=== PATIENT | female | born 1975 | race Caucasian/White ===

== ENCOUNTER 2016-11-03 09:56 | Observation (INO) | payer SELFPAY ==
[~2016-11-03] VITALS: Ht 162.6 cm; Wt 99.0 kg
[2016-11-03 10:09] VITALS: BP 132/82; PULSE 97; RESP 16; TEMP 98.2; O2SAT 100
[2016-11-03 10:54] LABS: MEAN CORPUSCULAR HGB CONC 29.9 % (32.0-36.0)
[2016-11-03 11:21] LABS: AUTOMATED NEUTROPHIL # 5.9 TH/MM3 (1.8-7.7); BASOPHIL % 0.6 % (0.0-2.0); EOSINOPHIL # 0.1 TH/MM3 (0-0.4); EOSINOPHIL % 0.9 % (0.0-4.0); HEMATOCRIT 25.7 % (35.0-46.0); LYMPH % 17.2 % (9.0-44.0); LYMPHOCYTE # 1.4 TH/MM3 (1.0-4.8); MEAN CELL VOLUME 64.7 FL (80.0-100.0); MEAN CORPUSCULAR HEMOGLOBIN 19.4 PG (27.0-34.0); MONO % 6.2 % (0.0-8.0); NEUT % 75.1 % (16.0-70.0); PLATELET COUNT 359 TH/MM3 (150-450); RED BLOOD COUNT 3.97 MIL/MM3 (4.00-5.30); WHITE BLOOD COUNT 7.9 TH/MM3 (4.0-11.0)
[2016-11-03 11:23] LABS: HEMO FLAGS AUTO DIFF
--- NOTE | 2016-11-03 11:29 | PD ---
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 She states she is concerned because she's been having a heavy amount over the past couple of days worse sometimes and an hour she'll passed multiple clots. Quality is bright red. Severity is progressive. She states she has long-standing history of irregular periods and her last bleeding was a week before this. She states no other specific complaints. PFSH Past Medical History Medical History: Denies Significant Hx Hx Anticoagulant Therapy: No Diabetes: No ?: Not LMP: NOW Past Surgical History Surgical History: No Previous Surgery Social History Alcohol Use: No Tobacco Use: Yes Substance Use: No Allergies-Medications (Allergen,Severity, Reaction): Coded Allergies: No Known Allergies (Unverified , 11/03/16) Reported Meds & Prescriptions Reported Meds & Active Scripts Active No Active Prescriptions or Reported Medications Review of Systems Except as stated in HPI: all other systems reviewed are Neg Physical Exam Narrative GENERAL: Well-nourished, well-developed patient. SKIN: Warm and dry. HEAD: Normocephalic and atraumatic. EYES: No injection or drainage. ENT: No nasal drainage noted. NECK: Supple, trachea midline. CARDIOVASCULAR: Regular rate and rhythm RESPIRATORY: No increased effort. No accessory muscle use. GASTROINTESTINAL: Abdomen soft, mild suprapubic tenderness, nondistended. No rebound or guarding EXTREMITIES: No edema. GENITOURINARY: Normal external genitalia without lesions or erythema. Vaginal vault moderate amount of blood. Cervical os is obscured by blood. When this is cleared os is not dilated and blood is coming from this area NEUROLOGICAL: Awake and alert. Motor and sensory grossly within normal limits. Normal speech. Data Data Last Documented VS Vital Signs Date Time Temp Pulse Resp B/P Pulse Ox O2 Delivery O2 Flow Rate FiO2 11/03/16 13:55 89 18 130/84 98 Room Air 11/03/16 10:09 98.2 Orders Complete Blood Count With Diff (11/03/16 10:53) Type And Screen (11/03/16 10:53) Iv Access Insert/Monitor (11/03/16 10:53) Ecg Monitoring (11/03/16 10:53) Ed Urine Pregnancytest Poc (11/03/16 10:53) Basic Metabolic Panel (Bmp) (11/03/16 11:59) Us Pelvis Comp Data Integrity Analyst/Non-Preg (11/03/16 12:00) Hemoglobin (Hgb) (11/03/16 14:00) Red Blood Cells (Rbc) (11/03/16 14:42) Admit Order (Ed Use Only) (11/03/16 15:01) Labs Laboratory Tests Test 11/03/16 11/03/16 11:09 13:52 White Blood Count 7.9 TH/MM3 Red Blood Count 3.97 MIL/MM3 Hemoglobin 7.7 GM/DL 7.1 GM/DL Hematocrit 25.7 % Mean Corpuscular Volume 64.7 FL Mean Corpuscular Hemoglobin 19.4 PG Mean Corpuscular Hemoglobin 29.9 % Concent Red Cell Distribution Width 18.0 % Platelet Count 359 TH/MM3 Mean Platelet Volume 8.0 FL Neutrophils (%) (Auto) 75.1 % Lymphocytes (%) (Auto) 17.2 % Monocytes (%) (Auto) 6.2 % Eosinophils (%) (Auto) 0.9 % Basophils (%) (Auto) 0.6 % Neutrophils # (Auto) 5.9 TH/MM3 Lymphocytes # (Auto) 1.4 TH/MM3 Monocytes # (Auto) 0.5 TH/MM3 Eosinophils # (Auto) 0.1 TH/MM3 Basophils # (Auto) 0.0 TH/MM3 CBC Comment AUTO DIFF Differential Comment AUTO DIFF CONFIRMED Sodium Level 140 MEQ/L Potassium Level 3.9 MEQ/L Chloride Level 105 MEQ/L Carbon Dioxide Level 25.0 MEQ/L Anion Gap 10 MEQ/L Blood Urea Nitrogen 14 MG/DL Creatinine 1.00 MG/DL Estimat Glomerular Filtration 62 ML/MIN Rate Random Glucose 128 MG/DL Calcium Level 8.6 MG/DL Blood Type A POSITIVE Antibody Screen NEGATIVE Blood Bank Comment [facility] Medical Decision Making Medical Screen Exam Complete: Yes Emergency Medical Condition: Yes Medical Record Reviewed: Yes (past history confirmed) Interpretation(s) CBC & BMP Diagram 11/03/16 11:09 Beta is negative Differential Diagnosis Menses, miscarriage, ectopic, anemia Narrative Course Will check blood work, test and reevaluate Hemoglobin is 7.7. Patient denies history of anemia. We'll discuss with gynecology given active bleeding hgb 7.1, has gone thru 3 pads in 4 hours, will place 2 units on hold, patient agrees to observation and if drops further or vitals change to transfuse Physician Communication Physician Communication dr barrett covering for corky states to check ultrasound and repeat hgb and if stays stable can go home on progesterone dr barrett states to admit to [facility] under her name Diagnosis Primary Impression: Anemia Qualified Code: D64.9 - Anemia, unspecified type Additional Impression: Vagina bleeding Scripts No Active Prescriptions or Reported Meds Shannon Fernandez MD Nov 03, 2016 11:29
[2016-11-03 12:14] LABS: SCAN/DIFF AUTO DIFF CONFIRMED
[2016-11-03 12:17] LABS: POTASSIUM 3.9 MEQ/L (3.5-5.1)
[2016-11-03 13:55] VITALS: BP 130/84; PULSE 89; RESP 18; O2SAT 98
--- NOTE | 2016-11-03 14:54 | RADHPO ---
EXAM DATE/TIME: 11/03/2016 12:42 [place] COMPARISON: No previous studies available for comparison. INDICATIONS : Vagina bleeding. MEDICAL HISTORY : Abnormal vaginal bleeding. Lower abdominal and pelvic pain. SURGICAL HISTORY : None. ENCOUNTER: Initial ACUITY: 3 days PAIN SCORE: 8/10 LOCATION: Bilateral pelvis MEASUREMENTS: UTERUS: 9.5 x 4.5 x 5.5 cm ENDOMETRIAL STRIPE: 17 mm RIGHT OVARY: 5.3 x 5.0 x 4.0 cm LEFT OVARY: 3.4 x 4.0 x 2.2 cm FINDINGS: UTERUS: The myometrium has homogeneous echotexture without mass. RIGHT OVARY: Ovary contains no mass or significant cystic lesion. LEFT OVARY: Ovary contains no mass or significant cystic lesion. 14 mm simple cyst is seen off the lower pole of the ovary. MISCELLANEOUS: No free fluid. CONCLUSION: 14 mm left ovarian cyst. Thickened endometrial stripe No evidence of suspicious central pelvic or adnexal masses. Santos Conde MD on November 03, 2016 at 14:49 Board Certified Radiologist. This report was verified electronically.
[2016-11-03 16:11] VITALS: BP 131/78; PULSE 92; RESP 18; O2SAT 97
[2016-11-03 18:25] VITALS: BP 128/72; PULSE 83; RESP 20; TEMP 98.7; O2SAT 98
--- NOTE | 2016-11-03 20:04 | HHI.HP ---
HPI Chief Complaint Irregular vaginal bleeding Date Seen: Nov 03, 2016 Travel History International Travel<30 Days: No Contact w/Intl Traveler<30Days: No Known Affected Area: No History of Present Illness HPI 40 yo G0 transferred from an outside facility where she presented with irregular vaginal bleeding. Hemoglobin there 7.1. Patient denies dizziness or lightheadedness. Patient reports irregular menses for years. US obtained at the previous facility, showing EMS 17mm and LARS simple cyst-14mm. Denies clots. Denies abdominal or pelvic pain. Last motor builder winder visit 5 years ago. Denies any treatment or recent evaluation for her irregular menses before today. History Past Medical History Medical History: Denies Significant Hx Past Surgical History Surgical History: No Previous Surgery Family History Family History: Negative Social History Alcohol Use: No Tobacco Use: Yes (Reports 5 or less cigarettes per day) Substance Abuse: No Allergies-Medications (Allergen,Severity, Reaction): Coded Allergies: No Known Allergies (Unverified , 11/03/16) Home Meds No Active Prescriptions or Reported Meds Review of Systems Except as stated in HPI: all other systems reviewed are Neg Physical Exam Vital Signs Date Time Temp Pulse Resp B/P Pulse Ox O2 Delivery O2 Flow Rate FiO2 11/03/16 18:25 98.7 83 20 128/72 98 11/03/16 16:11 92 18 131/78 97 Room Air 11/03/16 13:55 89 18 130/84 98 Room Air 11/03/16 10:09 98.2 97 16 132/82 100 Narrative GENERAL: Well-nourished, well-developed patient. SKIN: Warm and dry. HEAD: Normocephalic and atraumatic. EYES: No scleral icterus. No injection or drainage. ENT: No nasal drainage noted. Mucous membranes pink. Airway patent. NECK: Supple, trachea midline. No JVD. CARDIOVASCULAR: Regular rate and rhythm without murmurs, gallops, or rubs. RESPIRATORY: Breath sounds equal bilaterally. No accessory muscle use. BREASTS: Bilateral exam showed no masses , no retractions, no nipple discharge. ABDOMEN/GI: Abdomen soft, non-tender, bowel sounds present, no rebound, no guarding Gravid to [-] weeks size Fundal Height: [-] GENITOURINARY: SSE- scant blood in vault, no clots, cervix with CMT, uterus- small and mobile, adnexa- NT External Genitalia: intact and normal in appearance BUS glands: [-] Cervix: [-] Dilatation: [-] Effacement: [-] Station: [-] Presentation: [-] Membranes: [intact or ruptured] Uterine Contractions: [-] FHT's: Category: [-] Baseline: [-] Reactive: [-] Variability: [-] Decels: [-] EXTREMITIES: No cyanosis or edema. BACK: Nontender without obvious deformity. No CVA tenderness. NEUROLOGICAL: Awake and alert. Motor and sensory grossly within normal limits. Five out of 5 muscle strength in all muscle groups. Normal speech. Data Data Orders Complete Blood Count With Diff (11/03/16 10:53) Type And Screen (11/03/16 10:53) Iv Access Insert/Monitor (11/03/16 10:53) Ecg Monitoring (11/03/16 10:53) Ed Urine Pregnancytest Poc (11/03/16 10:53) Basic Metabolic Panel (Bmp) (11/03/16 11:59) Us Pelvis Comp Director Digital Catalogue/Non-Preg (11/03/16 12:00) Hemoglobin (Hgb) (11/03/16 14:00) Red Blood Cells (Rbc) (11/03/16 14:42) Admit Order (Ed Use Only) (11/03/16 15:01) ^ Call Physician (11/03/16 16:58) Labs Laboratory Tests Test 11/03/16 11/03/16 11/03/16 11/03/16 11:09 13:52 14:42 15:01 White Blood Count 7.9 Red Blood Count 3.97 Hemoglobin 7.7 7.1 Hematocrit 25.7 Mean Corpuscular Volume 64.7 Mean Corpuscular Hemoglobin 19.4 Mean Corpuscular Hemoglobin 29.9 Concent Red Cell Distribution Width 18.0 Platelet Count 359 Mean Platelet Volume 8.0 Neutrophils (%) (Auto) 75.1 Lymphocytes (%) (Auto) 17.2 Monocytes (%) (Auto) 6.2 Eosinophils (%) (Auto) 0.9 Basophils (%) (Auto) 0.6 Neutrophils # (Auto) 5.9 Lymphocytes # (Auto) 1.4 Monocytes # (Auto) 0.5 Eosinophils # (Auto) 0.1 Basophils # (Auto) 0.0 CBC Comment AUTO DIFF Differential Comment AUTO DIFF CONFIRMED Sodium Level 140 Potassium Level 3.9 Chloride Level 105 Carbon Dioxide Level 25.0 Anion Gap 10 Blood Urea Nitrogen 14 Creatinine 1.00 Estimat Glomerular Filtration 62 Rate Random Glucose 128 Calcium Level 8.6 Blood Type A POSITIVE A POSITIVE A POSITIVE Antibody Screen NEGATIVE Blood Bank Comment Crossmatch Leukocyte-Reduced Red Blood Cells Assessment/Plan Assessment and Plan 40 yo G0 with irregular menses and anemia. Plan: D/w patient US and current status. D/w patient a trial of Premarin IV. R /B/A reviewed, all questions answered. D/w patient possibility of transfusion. R/B/A reviewed with all questions answered. CBC in am. Continue pad counts. Close motor builder winder f/u upon discharge. Lindsey Perez MD Nov 03, 2016 20:04
[2016-11-03] MEDS ORDERED: ONDANSETRON HCL 4 MG/2 ML VIAL IV PUSH PRN (20:15)
[2016-11-03] MEDS ORDERED: ESTROGENS CONJUGATED 25 MG/5 ML VIAL IV PUSH ONE (20:30)
[2016-11-03 20:55] VITALS: BP 129/70; PULSE 62; RESP 18; TEMP 97.3; O2SAT 95
[2016-11-04] VITALS (10 sets, daily range): BP systolic 103–133; BP diastolic 55–79; PULSE 74–87; RESP 16–18; TEMP 96.4–98.8; O2SAT 97–99
[2016-11-04 08:05] LABS: BASOPHIL % 0.3 % (0.0-2.0); EOSINOPHIL % 0.2 % (0.0-4.0); LYMPH % 13.7 % (9.0-44.0); LYMPHOCYTE # 2.2 TH/MM3 (1.0-4.8); MEAN CELL VOLUME 63.6 FL (80.0-100.0); MEAN CORPUSCULAR HEMOGLOBIN 19.3 PG (27.0-34.0); MEAN CORPUSCULAR HGB CONC 30.3 % (32.0-36.0); MONO % 4.8 % (0.0-8.0); PLATELET COUNT 326 TH/MM3 (150-450); RED BLOOD COUNT 3.29 MIL/MM3 (4.00-5.30); RED CELL DISTRIBUTION WIDTH 18.5 % (11.6-17.2); WHITE BLOOD COUNT 16.1 TH/MM3 (4.0-11.0)
[2016-11-04 08:19] LABS: HEMO FLAGS DIFF FINAL
[2016-11-04 08:31] LABS: HEMATOCRIT 20.9 % (35.0-46.0)
[2016-11-04] MEDS ORDERED: ACETAMINOPHEN 325 MG TAB PO PRN (10:45)
[2016-11-04] MEDS ORDERED: SODIUM CHLOR 0.9% 250 ML INJ 250 ML IV ONE (10:45)
[2016-11-04] MEDS ORDERED: diphenhydrAMINE HCL 25 MG CAP PO PRN (10:45)
--- NOTE | 2016-11-04 11:27 | HHI.PR ---
Subjective Remarks Patient was seen and examined this morning. She has be ambulating without dizziness, shortness of breath, or balance issues. Her menstrual bleeding is "minimal" since she received the IV estrogen. She denies nausea, vomiting, headache, shortness of breath, chest pain. She was updated on her hemoglobin drop and is agreeable to receiving blood products today. Objective Vital Signs Date Time Temp Pulse Resp B/P Pulse Ox O2 Delivery O2 Flow Rate FiO2 11/04/16 08:16 96.4 79 18 103/68 98 11/04/16 04:00 96.8 84 16 110/55 98 11/04/16 00:31 96.4 78 18 112/59 97 11/03/16 20:55 97.3 62 18 129/70 95 11/03/16 18:25 98.7 83 20 128/72 98 11/03/16 16:11 92 18 131/78 97 Room Air 11/03/16 13:55 89 18 130/84 98 Room Air I/O 11/03/16 11/03/16 11/03/16 11/04/16 11/04/16 11/04/16 07:00 15:00 23:00 07:00 15:00 23:00 Intake Total 600 ml 550 ml Output Total 900 ml Balance 600 ml -350 ml Intake Oral 600 ml 550 ml Output Urine Total 900 ml # Voids 3 # Bowel Movements 0 0 # Sanitary Pads 5 Pads 1 Pads 1 Pads Result Diagram: 11/04/16 0734 11/03/16 1109 Imaging Last 72 hours Impressions Pelvis Ultrasound 11/03/16 1200 Signed Impressions: Service Date/Time: Thursday, November 03, 2016 12:42 - CONCLUSION: 14 mm left ovarian cyst. Thickened endometrial stripe No evidence of suspicious central pelvic or adnexal masses. Santos Conde MD Objective Remarks GENERAL: Well-nourished, well-developed female. She appears comfortable and is in no apparent distress CARDIOVASCULAR: Regular rate and rhythm without murmurs, gallops, or rubs. RESPIRATORY: Breath sounds equal bilaterally. No accessory muscle use. ABDOMEN/GI: Abdomen soft, non-tender. GENITOURINARY: deferred EXTREMITIES: No cyanosis or edema, non-tender, without signs of DVT. Medications and IVs Inpatient Medications Acetaminophen (Tylenol) 650 mg Q4H PRN PO SEE LABEL COMMENTS; Start 11/04/16 at 10:45; Stop 11/04/16 at 14:46 Diphenhydramine HCl (Benadryl) 25 mg Q4H PRN PO SEE LABEL COMMENTS; Start 11/04 at 10:45; Stop 11/04/16 at 14:46 Estrogens Conjugated (Premarin Inj) 25 mg ONCE ONCE IV PUSH Last administered on 11/03/16t 22:55; Start 11/03/16 at 20:30; Stop 11/03/16 at 20:31; Status DC Famotidine (Pepcid) 20 mg Q12HR PO ; Start 11/04/16 at 10:45 Ondansetron HCl 4 mg 4 mg Q6H PRN IV PUSH NAUSEA OR VOMITING; Start 11/03/16 at 20:15 Sodium Chloride (NS 250 ml Inj) 250 ml @ 15 mls/hr ONCE ONCE IV ; Start at 10:45; Stop 11/05/16 at 03:24 Assessment and Plan Problem List: (1) Vagina bleeding Status: Acute Plan: 40 yo G0 with irregular menses and anemia. She is currently asymptomatic with minimal vaginal bleeding after IV Premarin 1. However, her hemoglobin is noted to have dropped from 7.7 to 6.3 this hospital stay. Most likely etiology is chronic vaginal bleeding. She is a light smoker and is over age 35 so OCPs are contraindicated. US obtained 11/03/16. It showed an initial stripe of thickness 17mm and left ovarian simple cyst-14mm. Plan: D/w patient risks, benefits, and alternatives to transfusion. She uses transfusion this morning of 2 units PRBCs. This was discussed with her nurse as well. Follow-up H&H posttransfusion. Continue pad counts. She may be stable for discharge this evening after PRBC administration. Close ob/gyn doctor f/u upon discharge (i.e., within 1 week). Patient will likely require medication for long-term control of irregular menstrual bleeding. One option is tranexamic acid, and risks and benefits of this should be discussed with patient as there risks of adverse events with this medication. Patient was discussed with Dr. Licona (2) Anemia Status: Acute Plan: Plan as above Problem Qualifiers (1) Anemia: Qualified Code: D50.0 - Iron deficiency anemia due to chronic blood loss Gena Willson MD R1 Nov 04, 2016 11:27
[2016-11-04] MEDS: FAMOTIDINE 20 MG TAB PO SCH ×2 (21:00→22:02)
[2016-11-04 23:29] LABS: AUTOMATED NEUTROPHIL # 18.9 TH/MM3 (1.8-7.7); BASOPHIL # 0.1 TH/MM3 (0-0.2); BASOPHIL % 0.4 % (0.0-2.0); EOSINOPHIL # 0.1 TH/MM3 (0-0.4); EOSINOPHIL % 0.4 % (0.0-4.0); HEMATOCRIT 26.4 % (35.0-46.0); HEMO FLAGS DIFF FINAL; MEAN CELL VOLUME 68.6 FL (80.0-100.0); MEAN CORPUSCULAR HEMOGLOBIN 20.9 PG (27.0-34.0); MEAN CORPUSCULAR HGB CONC 30.5 % (32.0-36.0); MONO % 3.3 % (0.0-8.0); NEUT % 82.9 % (16.0-70.0); PLATELET COUNT 319 TH/MM3 (150-450); RED BLOOD COUNT 3.85 MIL/MM3 (4.00-5.30); RED CELL DISTRIBUTION WIDTH 22.4 % (11.6-17.2)
[2016-11-04 23:37] LABS: WHITE BLOOD COUNT 22.8 TH/MM3 (4.0-11.0)
[2016-11-05] VITALS: BP 116/70; PULSE 66; RESP 18; TEMP 96.9; O2SAT 98
[2016-11-05] MEDS ORDERED: ACETAMINOPHEN 500 MG CPLT PO ONE (01:00)
[2016-11-05 04:00] VITALS: BP 98/65; PULSE 72; RESP 18; TEMP 96.4; O2SAT 100
[2016-11-05 08:00] VITALS: BP 136/79; PULSE 68; RESP 16; TEMP 97.4; O2SAT 97
--- NOTE | 2016-11-05 08:17 | HHI.DCPOC ---
Discharge Care Plan Diagnosis: (1) Vagina bleeding (2) Anemia Report Symptoms to Your Doctor -Temperature above 100.5 degrees -Redness, of incision or excessive or foul smelling drainage -Unusual pain or calf pain -Increased vaginal bleeding -Painful or difficulty urinating -Feelings of extreme sadness or anxiety after 2 weeks Goals to Promote Your Health * To prevent worsening of your condition and complications * To maintain your health at the optimal level Directions to Meet Your Goals Take your medications as prescribed Follow your dietary instruction Follow activity as directed Ensure plenty of rest for recovery Drink fluids for hydration Keep your appointments as scheduled Take your immunizations and boosters as scheduled If your symptoms worsen call your PCP, if no PCP go to Urgent Care Center or Emergency Room Smoking is Dangerous to Your Health. Avoid second hand smoke Call the 24-hour crisis hotline for domestic abuse at Gena Willson MD R1 Nov 05, 2016 08:17
[2016-11-05] MEDS ORDERED: ZOFR4TAB3 SL (08:20)
[2016-11-05] MEDS ORDERED: FAMO20TA2 PO (08:20)
[2016-11-05] MEDS: FAMOTIDINE 20 MG TAB PO SCH (09:11)
--- NOTE | 2016-11-05 10:27 | HHI.PR ---
Subjective Remarks Patient was seen and examined at bedside. She has be ambulating without dizziness, shortness of breath, or balance issues. She is status post 2 units PRBCs on 11/05 with posttransfusion H&H 8.1/26.4. She continues to be asymptomatic due to the anemia and has had her menstrual bleeding is like a light period. She denies nausea, vomiting, headache, shortness of breath, chest pain. Objective Vital Signs Date Time Temp Pulse Resp B/P Pulse Ox O2 Delivery O2 Flow Rate FiO2 11/05/16 08:00 97.4 68 16 136/79 97 11/05/16 04:00 96.4 72 18 98/65 100 11/05/16 00:00 96.9 66 18 116/70 98 11/04/16 20:00 98.8 74 18 121/79 98 11/04/16 19:37 80 11/04/16 15:35 87 11/04/16 15:32 98.0 87 16 127/67 99 11/04/16 13:42 97.1 76 16 117/73 11/04/16 13:30 76 11/04/16 13:29 97.1 76 16 133/73 I/O 11/04/16 11/04/16 11/04/16 11/05/16 11/05/16 11/05/16 07:00 15:00 23:00 07:00 15:00 23:00 Intake Total 550 ml 1000 ml Output Total 900 ml Balance -350 ml 1000 ml Intake Oral 550 ml Packed Cells 1000 ml Output Urine Total 900 ml # Bowel Movements 0 # Sanitary Pads 1 Pads Result Diagram: 11/04/16 2226 11/03/16 1109 Imaging Last Impressions Pelvis Ultrasound 11/03/16 1200 Signed Impressions: Service Date/Time: Thursday, November 03, 2016 12:42 - CONCLUSION: 14 mm left ovarian cyst. Thickened endometrial stripe No evidence of suspicious central pelvic or adnexal masses. Santos Conde MD Objective Remarks GENERAL: Well-nourished, well-developed female in no apparent distress. CARDIOVASCULAR: Regular rate and rhythm without murmurs, gallops, or rubs. RESPIRATORY: Breath sounds equal bilaterally. No accessory muscle use. ABDOMEN/GI: Abdomen soft, non-tender. GENITOURINARY: deferred EXTREMITIES: No cyanosis or edema, non-tender, without signs of DVT. Medications and IVs Inpatient Medications Acetaminophen (Tylenol) 1,000 mg ONCE ONCE PO Last administered on 11/05/16 00:56; Start 11/05/16 at 01:00; Stop 11/05/16 at 01:01; Status DC Diphenhydramine HCl (Benadryl) 25 mg Q4H PRN PO SEE LABEL COMMENTS Last administered on 11/04/16 11:39; Start 11/04/16 at 10:45; Stop 11/04/16 at 14:46 ; Status DC Estrogens Conjugated (Premarin Inj) 25 mg ONCE ONCE IV PUSH Last administered on 11/03/16 22:55; Start 11/03/16 at 20:30; Stop 11/03/16 at 20:31; Status DC Famotidine (Pepcid) 20 mg Q12HR PO Last administered on 11/05/16 09:11; Start 11/04/16 at 10:45 Ondansetron HCl 4 mg 4 mg Q6H PRN IV PUSH NAUSEA OR VOMITING; Start 11/03/16 at 20:15 Sodium Chloride (NS 250 ml Inj) 250 ml @ 15 mls/hr ONCE ONCE IV ; Start at 10:45; Stop 11/05/16 at 03:24; Status DC Assessment and Plan Problem List: (1) Vagina bleeding Status: Acute Plan: 40 yo G0 with irregular menses and anemia. She is currently asymptomatic with minimal vaginal bleeding after IV Premarin 1 on 11/03. Hemoglobin/ hematocrit post transfusion is 8.1/26.3. She is a light smoker and is over age 35 so OCPs are contraindicated. US obtained 11/03/16. It showed an endometrial stripe of thickness 17mm and left ovarian simple cyst-14mm. Plan: Status post transfusion of 2 units PRBCs with appropriately responsive H/H. 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 Marin within 1 week. It was discussed in detail the patient will likely require endometrial biopsy for further workup of her irregular and prolonged vaginal bleeding Continue pad counts. She will be discharged today to home. OCPs and tranexamic acid options were discussed She was counseled of the health benefits of smoking cessation and contraindication to OCPs due to her smoking use. Patient states she will try to quit Patient may require medication for long-term control of irregular menstrual bleeding. Patient was discussed with Dr. Licona (2) Anemia Status: Acute Plan: Plan as above Problem Qualifiers (1) Anemia: Qualified Code: D50.0 - Iron deficiency anemia due to chronic blood loss Gena Willson MD R1 Nov 05, 2016 10:27 Sandra Licona MD Nov 10, 2016 08:28
[2016-11-05 11:37] LABS: AUTOMATED NEUTROPHIL # 17.7 TH/MM3 (1.8-7.7); BASOPHIL # 0.2 TH/MM3 (0-0.2); BASOPHIL % 0.7 % (0.0-2.0); EOSINOPHIL # 0.1 TH/MM3 (0-0.4); EOSINOPHIL % 0.6 % (0.0-4.0); HEMATOCRIT 27.2 % (35.0-46.0); HEMO FLAGS DIFF FINAL; LYMPH % 13.4 % (9.0-44.0); LYMPHOCYTE # 2.9 TH/MM3 (1.0-4.8); MEAN CELL VOLUME 67.4 FL (80.0-100.0); MEAN CORPUSCULAR HGB CONC 31.1 % (32.0-36.0); MONO % 2.6 % (0.0-8.0); NEUT % 82.7 % (16.0-70.0); PLATELET COUNT 303 TH/MM3 (150-450); RED BLOOD COUNT 4.04 MIL/MM3 (4.00-5.30); RED CELL DISTRIBUTION WIDTH 22.1 % (11.6-17.2); WHITE BLOOD COUNT 21.4 TH/MM3 (4.0-11.0)
== END 2016-11-05 12:20 | disposition home or self-care (01) ==
LOC: PHED 09:56 → PHEDA 15:04 → HOCB 18:02
PROVIDERS: ADMIT Obstetrics & Gynecology; ATTEND Obstetrics & Gynecology
DX: N93.9 Abnormal uterine and vaginal bleeding, unspecified (principal); D64.9 Anemia, unspecified; N92.6 Irregular menstruation, unspecified; F17.200 Nicotine dependence, unspecified, uncomplicated
CPT/HCPCS: 36430; 76856; 80048; 84703; 85018; 85025; 86850; 86900; 86901; 86920; 96374; 99285; G0378; J1410; P9016

== ENCOUNTER 2016-11-05 14:21 | Observation (INO) | payer SELFPAY ==
[~2016-11-05] VITALS: Ht 162.6 cm; Wt 102.6 kg
[2016-11-05] VITALS (7 sets, daily range): BP systolic 111–186; BP diastolic 69–83; PULSE 69–98; RESP 16–20; TEMP 96.7–98.5; O2SAT 97–100
[~2016-11-05 14:21] MED LIST: FAMO20TA2 PO; ZOFR4TAB3 SL
--- NOTE | 2016-11-05 14:35 | PD ---
Physical Exam Time Seen by Provider: 14:32 Narrative 40yo F c/o vag bleeding that started today when she got home after being dc earlier today for vag bleeding w/ anemia and requiring blood transfusion. + lower abd cramping. [place] fever, vomiting. Patient seen in triage. VS reviewed. Awaiting bed placement. Data Data Last Documented VS Vital Signs Date Time Temp Pulse Resp B/P Pulse Ox O2 Delivery O2 Flow Rate FiO2 11/05/16 14:24 98.5 98 20 186/78 100 Room Air MDM Supervised Visit with DIEGO: Chelsea Bennett Nov 05, 2016 14:34
[2016-11-05 15:40] LABS: HEMATOCRIT 27.4 % (35.0-46.0); MEAN CELL VOLUME 68.5 FL (80.0-100.0); MEAN CORPUSCULAR HEMOGLOBIN 20.9 PG (27.0-34.0); MEAN CORPUSCULAR HGB CONC 30.5 % (32.0-36.0); PLATELET COUNT 395 TH/MM3 (150-450); RED BLOOD COUNT 4.01 MIL/MM3 (4.00-5.30); RED CELL DISTRIBUTION WIDTH 22.1 % (11.6-17.2); REVIEW FLAG FINAL; WHITE BLOOD COUNT 22.2 TH/MM3 (4.0-11.0)
--- NOTE | 2016-11-05 15:46 | PD ---
HPI . Vaginal bleeding Chief Complaint: Bleeding Time Seen by Provider: 14:40 Travel History International Travel<30 days: No Contact w/Intl Traveler<30days: No Traveled to known affect area: No History of Present Illness HPI Patient presents with recurrence of heavy vaginal. The patient was admitted to the hospital for heavy vaginal bleeding associated with anemia. Her lowest hemoglobin was 6.3. She was transfused with 2 units of blood. Her bleeding of and she was hemodynamically stable. She was thus discharged from the hospital with outpatient follow-up. She states that she had just walked in her door at home when blood started running down her leg again. She immediately presented back here. She has soaked 4 pads. PFSH Past Medical History Hx Anticoagulant Therapy: No Diabetes: No Social History Alcohol Use: No Tobacco Use: Yes (Reports 5 or less cigarettes per day) Substance Use: No Allergies-Medications (Allergen,Severity, Reaction): Coded Allergies: No Known Allergies (Unverified , 11/03/16) Reported Meds & Prescriptions Reported Meds & Active Scripts Active Zofran Odt (Ondansetron Odt) 4 Mg Tab 4 Mg SL Q6HR PRN Famotidine 20 Mg Tab 20 Mg PO Q12HR Review of Systems Except as stated in HPI: all other systems reviewed are Neg Genitourinary: Positive: Vaginal Bleeding Physical Exam Narrative GENERAL: Awake and alert and in no acute distress. SKIN: Warm and dry. HEAD: Atraumatic. Normocephalic. EYES: Pupils equal and round. NECK: Trachea midline. CARDIOVASCULAR: Regular rate and rhythm. RESPIRATORY: No accessory muscle use. ALLIGATOR HUNTER: She has a large amount of both blood and blood clot coming from the cervix. MUSCULOSKELETAL: No obvious deformities. No edema. NEUROLOGICAL: Awake and alert. No obvious cranial nerve deficits. Motor grossly within normal limits. Normal speech. PSYCHIATRIC: Appropriate mood and affect; insight and judgment normal. Data Data Last Documented VS Vital Signs Date Time Temp Pulse Resp B/P Pulse Ox O2 Delivery O2 Flow Rate FiO2 11/05/16 16:32 86 126/71 95 139/83 115 139/82 11/05/16 15:20 98 Room Air 11/05/16 14:24 98.5 20 Orders Orthostatic Vital Signs (11/05/16 14:40) Cbc No Diff, Includes Plts (11/05/16 14:40) Ns (Bolus) Inj (11/05/16 17:00) Labs Laboratory Tests Test 11/05/16 15:15 White Blood Count 22.2 TH/MM3 Red Blood Count 4.01 MIL/MM3 Hemoglobin 8.4 GM/DL Hematocrit 27.4 % Mean Corpuscular Volume 68.5 FL Mean Corpuscular Hemoglobin 20.9 PG Mean Corpuscular Hemoglobin 30.5 % Concent Red Cell Distribution Width 22.1 % Platelet Count 395 TH/MM3 Mean Platelet Volume 7.9 FL MDM Medical Decision Making Medical Screen Exam Complete: Yes Emergency Medical Condition: Yes Medical Record Reviewed: Yes (the patient was here from for vaginal bleeding and anemia. The ely of her hemoglobin was 6.3. Her hemoglobin today was 8.1 today.) Differential Diagnosis Differential diagnosis of vaginal bleeding includes but is not limited to dysfunctional uterine bleeding, normal menstrual cycle, ectopic , spontaneous AB, PID. Narrative Course Patient presents with recurrence of heavy vaginal bleeding. Pain her H&H and then consult Dr. Perez. Hgb is 8.4. Orthostatics are +. The patient is ready for admission. I am just waiting to see who will admit-- family practice or ALLIGATOR HUNTER. Diagnosis Primary Impression: Vagina bleeding Additional Impression: Anemia Qualified Code: D64.9 - Anemia, unspecified type Admitting Information Admitting Physician Requests: Admit Condition: Stable Leda Garcia MD Nov 05, 2016 15:46
[2016-11-05] MEDS ORDERED: SODIUM CHLOR 0.9% 1000 ML INJ 1,000 ML IV ONE (17:00)
[2016-11-05] MEDS ORDERED: ONDANSETRON HCL 4 MG/2 ML VIAL IVP PRN (18:15)
[2016-11-05] MEDS ORDERED: NALOXONE HCL 0.4 MG/ML AMP IV PRN (18:15)
[2016-11-05] MEDS ORDERED: SODIUM CHLORIDE 0.9% FLUSH 10 ML FLUSH IV FLUSH PRN (18:15)
[2016-11-05] MEDS ORDERED: BISACODYL 10 MG SUPP RECTAL PRN (18:15)
[2016-11-05] MEDS ORDERED: SENNOSIDES 8.6 MG TAB PO PRN (18:15)
[2016-11-05] MEDS ORDERED: LACTULOSE SYRUP 20 GM/30 ML CUP PO PRN (18:15)
[2016-11-05] MEDS ORDERED: MAGNESIUM HYDROXIDE SUSP 30 ML CUP PO PRN (18:15)
--- NOTE | 2016-11-05 18:27 | HHI.HP ---
[facility] No Primary Care Physician Admission Diagnosis VAGINAL BLEEDING, ANEMIA Diagnoses: Chief Complaint: Vaginal bleeding Travel History International Travel<30 Days: No Contact w/Intl Traveler <30 Da: No Traveled to Known Affected Are: No History of Present Illness This is a 40-year-old female 0 with no past medical history who presented with vaginal bleeding. Patient was recently discharged one hour ago due to an admission for symptomatic anemia caused by menorrhalgia. Patient stated that once she got home she was flooded with blood around her with multiple clots. Patient called the hospital and she was told to come back to the ER. Patient stated that she feels a little lightheadedness. Denies any chest pain, shortness of breathing, palpitation. Patient stated that when she sitting she feels okay. She has no other complaints. She denies any fevers or chills. 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 Review of Systems Constitutional: DENIES: Diaphoretic episodes, Fatigue, Fever, Weight gain, Weight loss, Chills, Dizziness, Change in appetite, Night Sweats Endocrine: DENIES: Abnorml menstrual pattern, Heat/cold intolerance, Polydipsia , Polyuria, Polyphagia Eyes: DENIES: Blurred vision, Diplopia, Eye inflammation, Eye pain, Vision loss , Photosensitivity, Double Vision Ears, nose, mouth, throat: DENIES: Tinnitus, Hearing loss, Vertigo, Nasal discharge, Oral lesions, Throat pain, Hoarseness, Ear Pain, Running Nose, Epistaxis, Sinus Pain, Toothache, Odynophagia Respiratory: DENIES: Apneas, Cough, Snoring, Wheezing, Hemoptysis, Sputum production, Shortness of breath Cardiovascular: DENIES: Chest pain, Palpitations, Syncope, Dyspnea on Exertion , PND, Lower Extremity Edema, Orthopnea, Claudication Gastrointestinal: DENIES: Abdominal pain, Black stools, Bloody stools, Constipation, Diarrhea, Nausea, Vomiting, Difficulty Swallowing, Anorexia Genitourinary: DENIES: Abnormal vaginal bleeding, Dysmenorrhea, Dyspareunia, Sexual dysfunction, Urinary frequency, Urinary incontinence, Urgency, Hematuria , Dysuria, Nocturia, Vaginal discharge Musculoskeletal: DENIES: Joint pain, Muscle aches, Stiffness, Joint Swelling, Back pain, Neck pain Integumentary: DENIES: Abnormal pigmentation, Pruritus, Rash, Nail changes, Breast masses, Breast skin changes, Nipple discharge Hematologic/lymphatic: DENIES: Bruising, Lymphadenopathy Immunologic/allergic: DENIES: Eczema, Urticaria Neurologic: DENIES: Abnormal gait, Headache, Localized weakness, Paresthesias, Seizures, Speech Problems, Tremor, Poor Balance Psychiatric: DENIES: Anxiety, Confusion, Mood changes, Depression, Hallucinations, Agitation, Suicidal Ideation, Homicidal Ideation, Delusions Lightheadedness Past Family Social History Past Medical History Denies any past medical history. Past Surgical History Denying past surgical history. Reported Medications Zofran Odt (Ondansetron Odt) 4 Mg Tab 4 Mg SL Q6HR PRN Famotidine 20 Mg Tab 20 Mg PO Q12HR Allergies: Coded Allergies: No Known Allergies (Unverified , 11/03/16) Active Ordered Medications Current Medications Sodium Chloride (NS 1000 ml Inj) 1,000 ml @ 999 mls/hr BOLUS ONCE IV Last administered on 11/05/16t 17:06; Start 11/05/16 at 17:00; Stop 11/05/16 at 18:00 ; Status DC Sodium Chloride (NS Flush) 2 ml UNSCH PRN IV FLUSH FLUSH AFTER USING IV ACCESS ; Start 11/05/16 at 18:15; Status UNV Sodium Chloride (NS Flush) 2 ml BID IV FLUSH ; Start 11/05/16 at 21:00; Status UNV Ondansetron HCl (Zofran Inj) 4 mg Q6H PRN IVP NAUSEA OR VOMITING; Start at 18:15; Status UNV Naloxone HCl (Narcan Inj) 0.4 mg UNSCH PRN IV SEE LABEL COMMENTS; Start at 18:15; Status UNV Senna/Docusate Sodium (Ashley-Colace) 1 tab BID PO ; Start 11/05/16 at 21:00; Status UNV Magnesium Hydroxide (Milk Of Magnesia Liq) 30 ml Q12H PRN PO MILD - MODERATE CONSTIPATION; Start 11/05/16 at 18:15; Status UNV Sennosides (Senokot) 17.2 mg Q12H PRN PO MODERATE - SEVERE CONSTIPATION; Start 11/05/16 at 18:15; Status UNV Bisacodyl (Dulcolax Supp) 10 mg DAILY PRN RECTAL SEVERE CONSITIPATION; Start at 18:15; Status UNV Lactulose (Lactulose Liq) 30 ml DAILY PRN PO SEVERE CONSITIPATION; Start at 18:15; Status UNV Family History Deny any past family history. Social History Smokes about 5 cigars per day. Denies any alcohol illicit drug use. Physical Exam Vital Signs Vital Signs Date Time Temp Pulse Resp B/P Pulse Ox O2 Delivery O2 Flow Rate FiO2 11/05/16 16:32 86 126/71 95 139/83 115 139/82 11/05/16 15:20 98 Room Air 11/05/16 14:24 98.5 98 20 186/78 100 Room Air Physical Exam GENERAL: This is a well-nourished, well-developed patient, in no apparent distress. SKIN: No rashes, ecchymoses or lesions. Cool and dry. HEAD: Atraumatic. Normocephalic. No temporal or scalp tenderness. EYES: Pupils equal round and reactive. Extraocular motions intact. No scleral icterus. No injection or drainage. ENT: Nose without bleeding, purulent drainage or septal hematoma. Throat without erythema, tonsillar hypertrophy or exudate. Uvula midline. Airway patent. NECK: Trachea midline. No JVD or lymphadenopathy. Supple, nontender, no meningeal signs. CARDIOVASCULAR: Regular rate and rhythm without murmurs, gallops, or rubs. RESPIRATORY: Clear to auscultation. Breath sounds equal bilaterally. No wheezes , rales, or rhonchi. GASTROINTESTINAL: Abdomen soft, non-tender, nondistended. No hepato-splenomegaly , or palpable masses. No guarding. MUSCULOSKELETAL: Extremities without clubbing, cyanosis, or edema. No joint tenderness, effusion, or edema noted. No calf tenderness. Negative Homans sign bilaterally. NEUROLOGICAL: Awake and alert. Cranial nerves II through XII intact. Motor and sensory grossly within normal limits. Five out of 5 muscle strength in all muscle groups. Normal speech. Laboratory Laboratory Tests Test 11/05/16 15:15 White Blood Count 22.2 Red Blood Count 4.01 Hemoglobin 8.4 Hematocrit 27.4 Mean Corpuscular Volume 68.5 Mean Corpuscular Hemoglobin 20.9 Mean Corpuscular Hemoglobin 30.5 Concent Red Cell Distribution Width 22.1 Platelet Count 395 Mean Platelet Volume 7.9 Result Diagram: 11/05/16 1515 Assessment and Plan Assessment and Plan 40-year-old female with recent admission due to symptomatic anemia caused by vaginal bleeding Severe vaginal bleeding -Repeat hemoglobin is stable. Patient is hemodynamically stable. Will monitor with serial H/H. -Consult verifying specialist Dr. Perez who patient saw earlier today. Anemia -At the moment patient symptoms is mild lightheadedness. We'll continue to monitor. Hemoglobin stable from discharge. -Will transfuse if patient becomes more symptomatic or hemoglobin is less than 7. DVT prophylaxis -Chemoprophylaxis Contraindicated. SCDs Code Status full Discussed Condition With patient and her mom Hortensia Sawyer MD Nov 05, 2016 18:27
--- NOTE | 2016-11-05 19:52 | PD.CONS ---
History & Physical H&P This patient is a 40-year-old 0 her last normal menstrual period was 2 weeks ago lasted for about 14 days the patient originally presented to the [place] emergency room on November 03 with chief complaint of heavy vaginal bleeding She was subsequently transferred from [place] emergency room to the emergency room at [facility] where she was admitted with a diagnosis of irregular menses and anemia at that time her hemoglobin was 7.1 and she was dizzy and lightheaded she reports irregular menstrual cycles for years and ultrasound was obtained at the previous facility and it showed the endometrial lining measuring 17 mm and a left ovarian simple cyst measuring 1.4 cm at that time she denied any clots no abdominal or pelvic pain 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 Upon arriving home the patient reports repeated heavy vaginal bleeding and she returns to the emergency room with the chief complaint of passage of clots and heavy vaginal bleeding MAIL LIST PROCESSOR history onset at age 12 interval every 28-30 days duration of 5 days She states her cycle stopped at around 19 years old and began 2 years later and have been heavy and irregular since no history of any abnormal Pap smears denies any history of sexually transmitted diseases no MAIL LIST PROCESSOR surgery Has never been has never attempted Past medical history she has no known drug allergies no major medical problems Surgical history tonsils removed as a child Family history is negative Social history she smokes a half a pack of cigarettes per day denies alcohol or drug abuse No active home medications On physical examination blood pressure is 124/75 pulse is 94 she is a well- nourished well-developed white female in no acute distress she is alert oriented 3 and cooperative Her neck is supple no masses no thyroid enlargement no adenopathy HEENT ENT within normal limits Lungs are clear Cardiovascular regular rate and rhythm mild tachycardia Abdomen is obese soft no rebound tenderness no epigastric or right upper quadrant tenderness bowel sounds are positive mild tenderness in the suprapubic area Pelvic exam there is blood on the perineum no active bleeding Uterus is top normal size Left ovary mildly tender right mildly tender No rebound tenderness or cervical motion tenderness No edema of her lower extremities reflexes are 2+ and non-brisk Assessment Abnormal uterine bleeding Cigarette smoker Failed medical management Plan; We'll keep patient nothing by mouth after midnight Dr. Núñez is assistant director of admissions for [employer] have spoken with Dr. Núñez we'll plan for a hysteroscopy D&C possible ablation in the a.m. The procedure indications and complications have been fully discussed with the patient consents will be signed We'll type and crossmatch for 2 units Possible transfusion if indicated Gloria Hodges MD Nov 05, 2016 19:52
--- NOTE | 2016-11-05 20:07 | HHI.HP ---
History & Physical H&P History & Physical History & Physical H&P This patient is a 40-year-old 0 her last normal menstrual period was 2 weeks ago lasted for about 14 days the patient originally presented to the [place] emergency room on November 03 with chief complaint of heavy vaginal bleeding She was subsequently transferred from [place] emergency room to the emergency room at [facility] where she was admitted with a diagnosis of irregular menses and anemia at that time her hemoglobin was 7.1 and she was dizzy and lightheaded she reports irregular menstrual cycles for years and ultrasound was obtained at the previous facility and it showed the endometrial lining measuring 17 mm and a left ovarian simple cyst measuring 1.4 cm at that time she denied any clots no abdominal or pelvic pain 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 Upon arriving home the patient reports repeated heavy vaginal bleeding and she returns to the emergency room with the chief complaint of passage of clots and heavy vaginal bleeding [employer] history onset at age 12 interval every 28-30 days duration of 5 days She states her cycle stopped at around 19 years old and began 2 years later and have been heavy and irregular since no history of any abnormal Pap smears denies any history of sexually transmitted diseases no [employer] surgery Has never been has never attempted Past medical history she has no known drug allergies no major medical problems Surgical history tonsils removed as a child Family history is negative Social history she smokes a half a pack of cigarettes per day denies alcohol or drug abuse No active home medications On physical examination blood pressure is 124/75 pulse is 94 she is a well- nourished well-developed white female in no acute distress she is alert oriented 3 and cooperative Her neck is supple no masses no thyroid enlargement no adenopathy HEENT ENT within normal limits Lungs are clear Cardiovascular regular rate and rhythm mild tachycardia Abdomen is obese soft no rebound tenderness no epigastric or right upper quadrant tenderness bowel sounds are positive mild tenderness in the suprapubic area Pelvic exam there is blood on the perineum no active bleeding Uterus is top normal size Left ovary mildly tender right mildly tender No rebound tenderness or cervical motion tenderness No edema of her lower extremities reflexes are 2+ and non-brisk Assessment Abnormal uterine bleeding Cigarette smoker Failed medical management Plan; We'll keep patient nothing by mouth after midnight Dr. Núñez is contracting specialist for [employer] have spoken with Dr. Núñez we'll plan for a hysteroscopy D&C possible ablation in the a.m. The procedure indications and complications have been fully discussed with the patient consents will be signed We'll type and crossmatch for 2 units Possible transfusion if indicated Gloria Hodges MD Nov 05, 2016 19:52 Gloria Hodges MD Nov 05, 2016 20:07
[2016-11-05] MEDS: DOCUSATE SODIUM 50 MG/SENNA 8.6 MG TAB PO SCH (20:29)
[2016-11-05] MEDS: SODIUM CHLORIDE 0.9% FLUSH 10 ML FLUSH IV FLUSH SCH (20:30)
[2016-11-05] MEDS ORDERED: ceFAZolin 2 GM PREMIX 50 ML IV ONE (20:30)
[2016-11-05 21:32] LABS: APTT (PATIENT) 25.8 SEC (24.3-30.1)
[2016-11-06] VITALS (8 sets, daily range): BP systolic 105–139; BP diastolic 58–80; PULSE 67–81; RESP 16–18; TEMP 97–98.4; O2SAT 93–100
[2016-11-06] MEDS ORDERED: OXYTOCIN 10 UNIT/ML AMP ONE (07:28)
[2016-11-06] MEDS: DOCUSATE SODIUM 50 MG/SENNA 8.6 MG TAB PO SCH ×2 (08:02→20:38)
[2016-11-06] MEDS: SODIUM CHLORIDE 0.9% FLUSH 10 ML FLUSH IV FLUSH SCH ×2 (08:02→20:38)
[2016-11-06] MEDS ORDERED: ACETAMINOPHEN 1000 MG/100 ML VIAL IV ONE (08:09)
[2016-11-06] MEDS ORDERED: MIDAZOLAM HCL 2 MG/2 ML VIAL ONE (08:10)
[2016-11-06] MEDS ORDERED: DEXAMETHASONE SOD PHOS 4 MG/ML VIAL ONE (08:10)
[2016-11-06] MEDS ORDERED: fentaNYL CITRATE 250 MCG/5 ML AMP ONE (08:10)
[2016-11-06] MEDS ORDERED: FAMOTIDINE 20 MG/2 ML VIAL ONE (08:11)
[2016-11-06] MEDS ORDERED: SILVER NITR/POTASSIUM NITRATE APPLICATORS TOPICAL ONE (08:50)
[2016-11-06] MEDS ORDERED: IBUPROFEN 800 MG TAB PO PRN (09:00)
[2016-11-06] MEDS ORDERED: oxyCODONE/ACETAMINOPHEN 5 MG/325 MG TAB PO PRN (09:00)
[2016-11-06] MEDS ORDERED: DO NOT ADM ANY ANTICOAGULANT DRUGS PRN (09:11)
[2016-11-06] MEDS ORDERED: ONDANSETRON HCL 4 MG/2 ML VIAL IV PUSH ONE (12:00)
[2016-11-06] MEDS ORDERED: PROPOFOL 200 MG/20 ML AMP IV ONE (12:00)
[2016-11-07] VITALS: BP 113/56; PULSE 78; RESP 17; TEMP 98.3; O2SAT 95
[2016-11-07 04:00] VITALS: BP 116/58; PULSE 70; RESP 18; TEMP 97.4; O2SAT 99
--- NOTE | 2016-11-07 07:06 | HHI.PR ---
Subjective Remarks Patient seen and examined this am. She is s/p d&c with hysteroscopy yesterday. Hb for this am is stable. Patient states she has been walking around the halls. Vaginal bleeding has significantly decreased. She denies any abdominal cramping or irritability as she previously had. She strongly wants to go home where she can be comfortable. Objective Vital Signs Date Time Temp Pulse Resp B/P Pulse Ox O2 Delivery O2 Flow Rate FiO2 11/07/16 04:00 97.4 70 18 116/58 99 11/07/16 00:00 98.3 78 17 113/56 95 11/06/16 21:16 97 11/06/16 20:01 71 11/06/16 20:00 98.4 69 18 125/61 98 11/06/16 16:00 98.1 73 16 113/62 93 11/06/16 12:00 97.7 67 18 139/76 96 11/06/16 10:00 70 16 119/58 97 Nasal Cannula 2 11/06/16 09:45 70 16 126/68 98 Nasal Cannula 2 11/06/16 09:30 68 16 126/59 98 Nasal Cannula 2 11/06/16 09:15 70 16 141/63 97 Nasal Cannula 2 11/06/16 09:11 98.2 78 16 135/62 97 Nasal Cannula 2 I/O 11/06/16 11/06/16 11/06/16 11/07/16 11/07/16 11/07/16 06:59 14:59 22:59 06:59 14:59 22:59 Intake Total 0 ml 580 ml 720 ml 480 ml Output Total 500 ml Balance 0 ml 580 ml 720 ml -20 ml Intake Oral 0 ml 480 ml 720 ml 480 ml IV Total 100 ml Output Urine Total 500 ml # Voids 2 6 3 # Sanitary Pads 4 Pads 1 Pads 1 Pads Result Diagram: 11/06/16 1230 Objective Remarks GENERAL: well appearing, nad SKIN: Warm and dry. HEAD: Normocephalic. EYES: No scleral icterus. No injection or drainage. NECK: Supple, trachea midline. No JVD or lymphadenopathy. CARDIOVASCULAR: Regular rate and rhythm without murmurs, gallops, or rubs. RESPIRATORY: Breath sounds equal bilaterally. No accessory muscle use. GASTROINTESTINAL: Abdomen soft, non-tender, nondistended. MUSCULOSKELETAL: No cyanosis, or edema. BACK: Nontender without obvious deformity. A/P Problem List: (1) Vagina bleeding ICD Code: N93.9 (2) Anemia ICD Code: D64.9 Assessment and Plan 40-year-old female with recent admission due to symptomatic anemia caused by vaginal bleeding Severe vaginal bleeding - S/P D& C with hysteroscopy 11/[address] Núñez. Operative report & previous US confirm thickened endometrium. Full operative report is pending. Pathology pending. Anemia - Hb currently stable, VB stabilized. - Will transfuse if patient becomes more symptomatic or hemoglobin is less than 7. DVT prophylaxis -Chemoprophylaxis Contraindicated. SCDs Discharge Planning Hb stable. Spoke with Dr. Malhotra (covering for [place]) if vaginal bleeding stabilized patient may go home hon provea 10 mg daily until seen by Dr. Núñez in office this week. Will watch patient until 5pm, if VB continues to decrease may proceed with discharge. 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
[2016-11-07 08:00] VITALS: BP 128/65; PULSE 72; RESP 18; TEMP 97.1; O2SAT 100
[2016-11-07] MEDS: SODIUM CHLORIDE 0.9% FLUSH 10 ML FLUSH IV FLUSH SCH (08:34)
[2016-11-07] MEDS: DOCUSATE SODIUM 50 MG/SENNA 8.6 MG TAB PO SCH ×2 (08:34→14:20)
[2016-11-07 09:44] VITALS: O2SAT 97
[2016-11-07 10:57] LABS: HEMATOCRIT 24.9 % (35.0-46.0); REVIEW FLAG FINAL
[2016-11-07] MEDS ORDERED: PROV10TA PO (11:31)
--- NOTE | 2016-11-07 11:32 | HHI.DCPOC ---
Discharge Care Plan Diagnosis: (1) Vagina bleeding (2) Anemia Goals to Promote Your Health * To prevent worsening of your condition and complications * To maintain your health at the optimal level Directions to Meet Your Goals Take your medications as prescribed Follow your dietary instruction Follow activity as directed Keep your appointments as scheduled Take your immunizations and boosters as scheduled If your symptoms worsen call your PCP, if no PCP go to Urgent Care Center or Emergency Room Smoking is Dangerous to Your Health. Avoid second hand smoke Call the 24-hour hour crisis hotline for domestic abuse at Catie Ford MD R3 Nov 07, 2016 11:32
[2016-11-07 11:33] VITALS: BP 120/73; PULSE 71; RESP 18; TEMP 97.9; O2SAT 97
--- NOTE | 2016-11-08 09:51 | MP ---
cc: LIZZETTE NÚÑEZ DATE OF SURGERY: 11/06/2016 PREOPERATIVE DIAGNOSIS: Menorrhagia, thickened endometrium, anemia. POSTOPERATIVE DIAGNOSIS Menorrhagia, thickened endometrium, anemia. Cervical lesion. PROCEDURE Examination under anesthesia, hysteroscopy, dilatation and curettage, cervical biopsy. SURGEON Dr. Núñez ANESTHESIA General via LMA, Dr. Liz. FLUIDS: 400 cc crystalloid ESTIMATED BLOOD LOSS 100 cc URINE OUTPUT 25 cc on straight cath prior to procedure. FINDINGS Uterus was approximately 8-10 weeks in size on examination under anesthesia. On bimanual examination nodularity was noted to the cervix at the left posterior aspect around 4 o'clock, no adnexal masses were palpable. At hysteroscopy massive tissue was noted. DESCRIPTION OF PROCEDURE: The patient was taken to the operating room where general anesthesia was found to be adequate. She was then prepped and draped in the normal sterile fashion in the dorsal lithotomy position. The urinary bladder was emptied of urine using sterile technique. A weighted speculum was placed in the vagina. Single-tooth tenaculum applied to the anterior lip of the cervix. The uterus sounded to approximately 10 cm. The cervix was dilated with Rom dilators sizes 9-15. Hysteroscopy was then performed with less than 60 cc of saline and a massive amount of tissue was visualized obscuring the hysteroscopic view. The hysteroscope was removed. The cervix was further dilated to Rom size 18 and a sharp curettage was performed. A massive amount of tissue was obtained and sent to pathology in three specimen cups. A cervical biopsy was then performed at 4 o'clock and the specimen was sent separately to pathology. Silver nitrate was used on the cervix for hemostasis. The instruments were removed from the vagina. The sponge, lap, needle and instrument counts were correct. The patient was transferred to recovery room in stable condition. Pathology was endometrial curettings and cervical biopsy. MD SANNA Mccall/HETAL /9:18 AM /9:50 AM ELI
== END 2016-11-07 17:45 | disposition home or self-care (01) ==
LOC: NEPD 14:21 → NEDA 17:06 → INTOOBSV 17:06 → HOCA 19:35 → UNDODISIN 11-07 17:45
PROVIDERS: ADMIT Obstetrics & Gynecology; ATTEND Obstetrics & Gynecology
DX: N92.0 Excessive and frequent menstruation with regular cycle (principal); N92.6 Irregular menstruation, unspecified; C54.1 Malignant neoplasm of endometrium; C53.9 Malignant neoplasm of cervix uteri, unspecified; R93.8 Abnormal findings on diagnostic imaging of other specified body structures; D64.9 Anemia, unspecified; R00.0 Tachycardia, unspecified; R42 Dizziness and giddiness; N83.292 Other ovarian cyst, left side; F17.210 Nicotine dependence, cigarettes, uncomplicated; F17.290 Nicotine dependence, other tobacco product, uncomplicated; Z17.0 Estrogen receptor positive status [ER+]
CPT/HCPCS: 00952; 36430; 58558; 82948; 85014; 85018; 85027; 85730; 86920; 88305; 88341; 88342; 99285; G0378; J0131; J0690; J1100; J2250; J2405; J3010; J7030; P9016; J2590

== ENCOUNTER → 2016-12-22 | Outpatient (CLI) | payer OTHER ==
[~2016-12-22] MED LIST changes: +AMOX500T PO; -FAMO20TA2 PO; +OXYC1TAB63 PO; +RANI150T PO; +ZOFR4TAB PO; -ZOFR4TAB3 SL
[2016-12-22 08:17] LABS: ANION GAP 9 MEQ/L (5-15); BICARBONATE 22.8 MEQ/L (21.0-32.0); BLOOD UREA NITROGEN 10 MG/DL (7-18); CHLORIDE 103 MEQ/L (98-107); GLOMERULAR FILTRATION RATE 73 ML/MIN (>89); GLUCOSE,FASTING 105 MG/DL (74-99); POTASSIUM 3.9 MEQ/L (3.5-5.1); SODIUM (NA) 135 MEQ/L (136-145)
[2016-12-22 08:30] LABS: ALKALINE PHOSPHATASE 61 U/L (45-117); ALT (GPT) 12 U/L (10-53); AST (GOT) 9 U/L (15-37); LDL CHOLESTEROL 100 MG/DL (0-99); TOTAL BILIRUBIN ADULT 0.3 MG/DL (0.2-1.0)
[2016-12-22 12:44] LABS: HEMOGLOBIN A1a 1.3 %; HEMOGLOBIN A1b 1.6 %; HEMOGLOBIN LA1C 2.1 %; HEMOGLOBIN P3 3.6 %
== END ==
LOC: CLAB 07:17
PROVIDERS: ATTEND Family Medicine
DX: D64.9 Anemia, unspecified (principal); C54.1 Malignant neoplasm of endometrium; N93.9 Abnormal uterine and vaginal bleeding, unspecified; Z98.890 Other specified postprocedural states; E66.9 Obesity, unspecified
CPT/HCPCS: 36415; 80053; 80061; 83036; 84443

== ENCOUNTER 2016-12-24 08:21 | Inpatient (IN) | payer OTHER ==
[~2016-12-24] VITALS: Ht 162.6 cm; Wt 100.2 kg
[~2016-12-24 08:21] MED LIST changes: -OXYC1TAB63 PO; -ZOFR4TAB PO
[2016-12-24] MEDS ORDERED: ZOFR4TAB PO (09:08)
[2016-12-24 09:10] VITALS: BP 130/71; PULSE 80; RESP 20; TEMP 98.1; O2SAT 98
[2016-12-24] MEDS ORDERED: INSULIN HUMAN REGULAR 1,000 UNITS/10 ML VIAL SQ PRN (09:15)
[2016-12-24] MEDS ORDERED: LACTATED RINGER'S 1000 ML IV PRN (09:15)
[2016-12-24] MEDS ORDERED: POVIDONE IODINE 5% (ANTISEPSIS KIT) 4 APPLICATIONS EACH NARE PRN (09:15)
[2016-12-24] MEDS ORDERED: HEPARIN SODIUM - SQ 10,000 UNITS/ML VIAL SQ SCH (09:15)
[2016-12-24] MEDS ORDERED: CHLORHEXIDINE GLUCONATE 2 % 1 PACK (2 CLOTHS) TOPICAL PRN (09:15)
[2016-12-24] MEDS ORDERED: METOPROLOL TARTRATE 25 MG TAB PO PRN (09:15)
[2016-12-24] MEDS ORDERED: SODIUM CHLORID 0.9% 500 ML IV PRN (09:15)
[2016-12-24] MEDS ORDERED: ceFAZolin 2 GM PREMIX 50 ML IV SCH (09:30)
[2016-12-24] MEDS ORDERED: ACETAMINOPHEN 1000 MG/100 ML VIAL IV ONE (11:30)
[2016-12-24] MEDS ORDERED: SUGAMMADEX SODIUM 200 MG/2 ML VIAL IV PUSH ONE ×2 (11:30)
[2016-12-24] MEDS ORDERED: HYDROmorphone HCL PF 2 MG/ML VIAL ONE (11:30)
[2016-12-24] MEDS ORDERED: FAMOTIDINE 20 MG/2 ML VIAL ONE (11:31)
[2016-12-24] MEDS ORDERED: DEXAMETHASONE SOD PHOS 4 MG/ML VIAL ONE (11:31)
[2016-12-24] MEDS ORDERED: LACTATED RINGER'S 1000 ML INJ 1,000 ML IV ONE (12:00)
[2016-12-24] MEDS ORDERED: PROPOFOL 200 MG/20 ML AMP IV ONE (12:00)
[2016-12-24] MEDS ORDERED: ONDANSETRON HCL 4 MG/2 ML VIAL IV PUSH ONE (12:00)
[2016-12-24] MEDS ORDERED: NORMOSOL R INJ 2,000 ML IV ONE (12:00)
[2016-12-24] MEDS ORDERED: LIDOCAINE 1.5%/EPINEPHrine 1:200,000 PF SOLN 30 ML AMP INFIL ONE (12:55)
[2016-12-24] MEDS ORDERED: ceFAZolin INJ 1,000 MG VIAL IV ONE (14:40)
[2016-12-24] MEDS ORDERED: fentaNYL CITRATE 250 MCG/5 ML AMP ONE ×2 (17:10→17:50)
[2016-12-24] MEDS ORDERED: SILVER NITR/POTASSIUM NITRATE APPLICATORS TOPICAL ONE (17:11)
[2016-12-24] MEDS ORDERED: HYDROmorphone HCL PF 1 MG/ML VIAL IVP PRN (17:45)
[2016-12-24] MEDS ORDERED: LORazepam 0.5 MG TAB PO PRN (17:45)
[2016-12-24] MEDS ORDERED: SODIUM CHLORIDE 0.9% FLUSH 10 ML FLUSH IV FLUSH PRN (17:45)
[2016-12-24] MEDS ORDERED: oxyCODONE/ACETAMINOPHEN 5 MG/325 MG TAB PO PRN (17:45)
[2016-12-24] MEDS ORDERED: diphenhydrAMINE HCL 25 MG CAP PO PRN (17:45)
[2016-12-24] MEDS ORDERED: MIDAZOLAM HCL 2 MG/2 ML VIAL ONE (17:50)
[2016-12-24] MEDS ORDERED: KETOROLAC TROMETHAMINE 30 MG/ML (IVP) VIAL IV PUSH ONE (19:00)
[2016-12-24] MEDS ORDERED: DO NOT ADM ANY ANTICOAGULANT DRUGS PRN (19:00)
[2016-12-24] MEDS ORDERED: *morphine SULFATE 8 MG/ML PERIprocedure ONLY ONE (19:04)
[2016-12-24 20:00] VITALS: BP 125/66; PULSE 78; RESP 17; TEMP 96.5; O2SAT 97
[2016-12-24] MEDS ORDERED: D5-1/2 NS + KCL 20 MEQ INJ 1,000 ML IV SCH (20:00)
[2016-12-24] MEDS: KETOROLAC TROMETHAMINE 30 MG/ML (IVP) VIAL IVP SCH (21:18)
[2016-12-24] MEDS: SODIUM CHLORIDE 0.9% FLUSH 10 ML FLUSH IV FLUSH SCH (21:24)
[2016-12-24] MEDS: oxyCODONE/ACETAMINOPHEN 5 MG/325 MG TAB PO PRN (22:08)
[2016-12-24] MEDS: ONDANSETRON HCL 4 MG/2 ML VIAL IVP PRN (22:08)
[2016-12-24 23:40] VITALS: O2SAT 94
[2016-12-25] VITALS: BP 150/76; PULSE 77; RESP 18; TEMP 96.4; O2SAT 95
[2016-12-25] MEDS: KETOROLAC TROMETHAMINE 30 MG/ML (IVP) VIAL IVP SCH ×2 (01:34→08:03)
[2016-12-25 04:00] VITALS: BP 141/75; PULSE 70; RESP 18; TEMP 97.2; O2SAT 97
[2016-12-25] MEDS: ONDANSETRON HCL 4 MG/2 ML VIAL IVP PRN (04:24)
[2016-12-25] MEDS: oxyCODONE/ACETAMINOPHEN 5 MG/325 MG TAB PO PRN (04:31)
[2016-12-25 08:00] VITALS: BP 131/68; PULSE 71; RESP 16; TEMP 97.8; O2SAT 96
[2016-12-25] MEDS: SODIUM CHLORIDE 0.9% FLUSH 10 ML FLUSH IV FLUSH SCH (08:04)
[2016-12-25] MEDS ORDERED: OXYC1TAB63 PO (08:09)
--- NOTE | 2016-12-25 08:15 | PD.ONC.PN ---
Subjective Subjective Remarks POD #1 s/p RA lap hyst with BSO omentectomy pt sitting up in bed without complaints has had some nausea no vomiting taking Percocet for pain Moreno has been discontinued no void as of yet discussed with pt findings during surgery per Dr. Valdez questions answered Objective Data Date Time Temp Pulse Resp B/P Pulse Ox O2 Delivery O2 Flow Rate FiO2 12/25/16 05:34 20 12/25/16 04:00 97.2 70 18 141/75 97 12/25/16 00:00 96.4 77 18 150/76 95 12/24/16 23:40 94 21 12/24/16 23:00 19 12/24/16 20:00 96.5 78 17 125/66 97 12/24/16 18:45 80 16 156/79 96 Nasal Cannula 2 12/24/16 18:30 80 16 158/76 96 Nasal Cannula 2 12/24/16 18:15 82 16 145/84 96 Nasal Cannula 2 12/24/16 18:00 82 16 140/79 96 Nasal Cannula 2 12/24/16 17:45 84 16 141/76 98 Nasal Cannula 2 12/24/16 17:43 98.0 88 16 122/67 99 Nasal Cannula 2 12/24/16 09:10 98.1 80 20 130/71 98 Laboratory Results Laboratory Tests Test 12/24/16 12/24/16 09:10 11:52 Blood Type A POSITIVE Antibody Screen NEGATIVE Crossmatch Leukocyte-Reduced Red Blood Cells Blood Bank Comment Administered Medications Medications (Trade) Dose Ordered Sig/Kiana Route PRN Reason Start Time Stop Time Status Last Admin Dose Admin Lactated Ringer's 1,000 ml @ 30 mls/hr Q24H PRN IV SEE LABEL COMMENTS 12/24/16 09:15 12/27/16 09:14 12/24/16 09:00 Potassium Chloride/Dextrose/ Sod Cl (D5-1/2 NS + KCl 20 Meq Inj) 1,000 ml @ 125 mls/hr Q8H IV 12/24/16 20:00 12/25/16 01:33 Sodium Chloride (NS Flush) 2 ml BID IV FLUSH 12/24/16 21:00 12/24/16 21:24 Ketorolac Tromethamine (Toradol Inj) 30 mg Q6H IVP 12/24/16 20:00 12/25/16 14:01 12/25/16 08:03 Oxycodone/ Acetaminophen (Percocet 5-325 Mg) 2 tab Q4H PRN PO PAIN SCALE 6 TO 10 12/24/16 17:45 12/25/16 04:31 Ondansetron HCl (Zofran Inj) 4 mg Q6H PRN IVP NAUSEA OR VOMITING 12/24/16 17:45 12/25/16 04:24 Famotidine (Pepcid) 20 mg DAILY PO 12/25/16 09:00 12/25/16 08:03 Objective Remarks GENERAL: Well-nourished, well-developed patient. SKIN: Warm and dry. HEAD: Normocephalic. EYES: No scleral icterus. No injection or drainage. CARDIOVASCULAR: Regular rate and rhythm without murmurs. RESPIRATORY: Breath sounds equal bilaterally. No accessory muscle use. GASTROINTESTINAL: SS are c/d/i without any s/s of infection or drainage EXTREMITIES: teds and scds MUSCULOSKELETAL: Adequate muscle tone. NEUROLOGICAL: No obvious focal deficit. Awake, alert, and oriented x3. PSYCHIATRIC: Appropriate mood and affect; insight and judgment normal. 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 Valdez is in agreement to this plan and discharge. Heidi Morris Dec 25, 2016 08:15
[2016-12-25 08:30] LABS: AUTOMATED NEUTROPHIL # 10.2 TH/MM3 (1.8-7.7); BASOPHIL % 0.1 % (0.0-2.0); EOSINOPHIL % 0.1 % (0.0-4.0); HEMO FLAGS DIFF FINAL; LYMPH % 10.2 % (9.0-44.0); LYMPHOCYTE # 1.2 TH/MM3 (1.0-4.8); MEAN CELL VOLUME 69.2 FL (80.0-100.0); MEAN CORPUSCULAR HEMOGLOBIN 21.1 PG (27.0-34.0); MEAN CORPUSCULAR HGB CONC 30.4 % (32.0-36.0); MONO % 6.1 % (0.0-8.0); NEUT % 83.5 % (16.0-70.0); PLATELET COUNT 398 TH/MM3 (150-450); RED BLOOD COUNT 4.63 MIL/MM3 (4.00-5.30); RED CELL DISTRIBUTION WIDTH 21.5 % (11.6-17.2); WHITE BLOOD COUNT 12.2 TH/MM3 (4.0-11.0)
[2016-12-25 08:50] LABS: BICARBONATE 25.3 MEQ/L (21.0-32.0); POTASSIUM 3.5 MEQ/L (3.5-5.1)
[2016-12-25] MEDS ORDERED: FAMOTIDINE 20 MG TAB PO SCH (09:00)
[2016-12-25] MEDS ORDERED: NON-FORMULARY DRUG (Ranitidine 150 MG) PO SCH (09:00)
[2016-12-25 09:03] LABS: CALCIUM-PROTEIN CORRECTED 7.6 MG/DL (8.5-10.1)
--- NOTE | 2016-12-29 07:47 | MP ---
cc: LIZZETTE GILBERT KELLY L. MD DATE OF SURGERY 12/24/2016 PREOPERATIVE DIAGNOSIS 1. Endometrial cancer 2. PET avid bilateral adnexal masses. 3. Intraperitoneal nodules and pulmonary nodules. 4. PET avid cervical nodules as well and other POSTOPERATIVE DIAGNOSIS 1. Endometrial cancer 2. PET avid bilateral adnexal masses intraperitoneal nodules and pulmonary nodules. 3. Ovarian cancer 4. PET avid cervical nodules as well and other PROCEDURE Debulking of ovarian cancer via robotic assisted laparoscopic en bloc, hysterectomy, bilateral salpingo-oophorectomy, omentectomy with resection of tumor, also resection of vaginal cuff tumor. 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 She also had a palpable tumor infiltrating the cervix. D&C described a prominent amount of tissue from the endometrium and it was thought that it represented tumor infiltrating to the cervix from the endometrium. There was no overt parametrial nodularity. On PET/CT scan, the uterus is enlarged. The adnexa are enlarged bilaterally. There is PET avid activity in the uterus. The cervix, both ovaries especially on the right side and multiple PET avid nodules that are described as being in the anterior pelvis. There is also PET avid multifocal pulmonary nodules all suspicious for metastatic disease. No significant adenopathy or ascites. She was counseled regarding these findings and the potential value of surgical management. She also understands that if indeed metastatic disease is confirmed, systemic therapy will be recommended. She is seen again in the preop holding area where these findings and plan are again discussed and reviewed. She expresses good understanding and agrees to move forward with surgical intervention. FINDINGS Findings were such that the omentum was draped to the pelvis and the distal omentum was fixed to a right ovarian tumor. The ovary on the right side was enlarged to approximately 8 cm with irregular complex surface and what appeared to be tumor growing through the surface with omentum adherent in the pelvis, especially overlying the right ovary. Additionally, the omentum had several areas that appeared to be tumor within the omentum, the largest of which estimated to be approximately 2 cm. There was smaller nodules as well. The left ovary was also enlarged and appeared abnormal. The uterus was symmetrically enlarged. There was tumor extending down into the cervix and there was additional tumor detected at the left vaginal cuff all of which was resected. At the conclusion of the case, all grossly detectable abnormalities, as well as all detected PET avid abnormalities had been completely removed such that there was no grossly detectable disease remaining in the pelvis or the abdomen at the conclusion of the case. STATEMENT OF COMPLEXITY The complexity of this case was significantly increased for several reasons, one of which is the markedly enlarged uterus. The second is the extensive adhesions between all of the aforementioned structures that was best accomplished with an en bloc resection and the body habitus of 102.5 kg. Modifier should be applied accordingly. PROCEDURE The patient taken to the operating room, placed in the dorsal lithotomy position after general endotracheal anesthesia was administered. A time-out was undertaken. She was identified by sight recognition and hospital ID bracelet and the proposed procedure was reviewed and confirmed. She was carefully positioned in padded Toño stirrups. Her arms were padded and secured to the sides. She was further secured to the operating table with egg crate padding and tape in a cross chest over the shoulder fashion. All sites were noted to be properly aligned with no malalignments or pressure points. She was prepped and draped in a sterile fashion, placed in the lithotomy position. Exam under anesthesia had been performed. The uterine cavity was sounded to between 10-11 cm and a large V-Care manipulator was inserted and secured in the usual fashion. Moreno catheter placed in the bladder. She was returned to low lithotomy position, a change of sterile gloves was undertaken and we confirmed an orogastric tube in the stomach on suction. With manual elevation of the abdominal wall, a 5 mm cannula was introduced under laparoscopic visualization. Carbon dioxide gas was insufflated and an atraumatic entry into the peritoneum was confirmed. With laparoscopic visualization, a 12 mm cannula was placed in the midline above the umbilicus, 8 mm cannula placed in the right upper quadrant and left lateral quadrant and the original 5-mm cannula exchanged for an 8-mm cannula. She was placed in steep Trendelenburg position. Peritoneal washings were obtained for cytology. The anatomy was reviewed with findings as described above. It was felt that dissection could best be facilitated by first resecting the omentum so the pelvic adhesions were not yet addressed. The small bowel was folded back on its mesenteric root below the omentum and three Ray-Noel sponges were placed around the root of the small bowel mesentery. Robotic system brought into the operative field, attached in the usual fashion. Monopolar scissors, fenestrated bipolar forceps and Prograsp manipulators were placed in arms #1, 2 and 3 respectively and I took my place at the surgeon's console. Assessment of the anatomy lead to first dissecting the infracolic omentum from the transverse colon starting near the hepatic flexure where nonvascular attachments were taken down with sharp dissection. Vascular attachments were isolated, cauterized and transected in a stepwise fashion. Attention was directed near the splenic flexure where similarly nonvascular attachments were taken down with sharp dissection, vascular attachments were isolated, cauterized and transected and then the dissection was continued along the mid region of the transverse colon in a similar fashion until the infracolic omentum had been detached. Attention was directed toward the pelvis. Adhesions were taken down with sharp dissection. They mobilized the adnexa which were somewhat scarred to the pelvic sidewall and posterior cul-de-sac. The right round ligament isolated, cauterized and transected. The anterior and posterior leafs of the broad ligament were opened. The right ureter was identified. The right infundibulopelvic limb was isolated to the level of the pelvic brim where it was cauterized and transected. The posterior peritoneum opened along the right side of the uterus and cervix and the right vesicouterine peritoneum was dissected off the lower uterine segment and cervix. Additional adhesions were taken down with sharp dissection as the right uterine vessels were skeletonized. Attention was directed toward the left side. The colon was mobilized, adhesions were taken down with sharp dissection and additional lysis of adhesions was carried out in the cul-de-sac and from the adnexa against the pelvic sidewall to help mobilize the structures and gain access to the retroperitoneum. The left round ligament isolated, cauterized and transected. The anterior and posterior leafs of the broad ligament were opened. The left ureter was identified. The left infundibulopelvic ligament was isolated. The intervening peritoneum was opened. The infundibulopelvic ligament was cauterized at the level of the pelvic brim and transected. The posterior peritoneum opened along the left side of the uterus and cervix and the left vesicouterine peritoneum was dissected off the lower uterine segment and cervix. Additional time was required due to a thick band of the scar tissue from between the bladder and the lower uterine segment. The bladder was dissected off the lower uterine segment and cervix below this band of scar tissue and the scar tissue was isolated, taken down with sharp dissection and focal cautery until the bladder was retracted below the level of the cervix. The left uterine vessels were skeletonized and now the bilateral the uterine vessels were exposed. They were cauterized thoroughly bilaterally. Attention was redirected towards the right side where the right uterine vessels were transected. The cardinal, paracervical and uterosacral ligaments were isolated, cauterized and transected in a stepwise fashion thereby freeing attachments along the right side of the uterus and cervix. On the left side similarly, the uterine vessels were transected. The cardinal, paracervical, and uterosacral ligaments were isolated, cauterized and transected. Colpotomy was performed following the V-Care manipulator the cervix from the upper vagina. Given the markedly enlarged size of the uterus relative to the pelvic outlet and a complex nature of the specimen, I left the surgeon's console to the perineum to help facilitate delivery of specimen. With multiple tenaculums, countertraction, repositioning and steady traction, the specimen was eventually delivered transvaginally which included uterus, cervix, bilateral tubes, ovaries, omentum and tumor. A Pneumooccluder balloon was placed in the vagina to maintain pneumoperitoneum. I returned to the surgeon's console. Inspection showed there was a persistence of a rim of tumor along the left vaginal cuff and this was removed with sharp dissection and cautery such that all visible tumor was now resected from the vaginal margin and the specimen was placed in the vagina for later retrieval. Instruments one and three were exchanged for needle drivers as a 0 Vicryl suture was introduced. The vaginal cuff was closed starting at the left corner with full-thickness closure including the posterior peritoneum and edge of the uterosacral ligaments were included and tied via instrument tie. The closing suture was continued full-thickness running closure across the vaginal cuff held on countertraction, fixed and secured to the contralateral corner, tied via instrument tie. The needle was cut and removed. The pelvis was thoroughly irrigated. Small bleeders rendered hemostatic with bipolar cautery. The integrity of the bladder was confirmed by filling the bladder with saline dyed with methylene blue. The bladder distended nicely under pressure. There were no areas of thinning of the bladder, certainly no extravasation of dye and a good margin between the edge of the bladder and the vaginal cuff suture line. Good peristalsis of ureters bilaterally and the bladder was drained. Hemostatic agent Ayla was placed in the vaginal cuff, pelvic dissection region. Inspection confirmed that all detectable tumor had been resected. Sites were hemostatic. 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 Final pathology is pending. The robotic instruments were removed. The robotic system was disengaged from the operative field. I reentered the bedside under sterile condition. Each of the three Ray-Noel sponges that had been placed were removed through the 12-mm cannula. Each were inspected and noted to be removed in their entirety. Inspection again confirmed there were no remaining foreign objects in the peritoneal cavity. Preliminary counts were correct. Sites were hemostatic and the remainder of the sites were closed. The 12 mm fascial defect was closed with interrupted 0 Vicryl sutures using a needle pass apparatus. The sutures were tied securely which rendered the fascia completely airtight and hemostatic. The remaining cannulas were withdrawn. Carbon dioxide gas was removed. 3-0 Vicryl subcutaneous, 3-0 Vicryl subcuticular and Steri-Strips were used to close these incisions. She was returned to dorsal lithotomy position. Inspection confirmed the vaginal cuff to be well supported and hemostatic. There was a minor superficial laceration along the left lower vaginal sidewall rendered hemostatic and reapproximated with [id number] 2-0 Vicryl sutures in an interrupted fashion which rendered this well approximated and hemostatic and the remaining Ayla hemostatic agent was placed in the distal vaginal canal. Final counts were correct. She was returned to dorsal supine position and was pending reversal of anesthesia when I left the operating room to precede her to the Post Anesthesia Care Unit. MD MAGALIE Espinal/LUPE /7:02 AM /7:15 AM
== END 2016-12-25 12:18 | disposition home or self-care (01) | DRG 740 ==
LOC: HSDC 08:21 → HSDI 17:37 → HOCA 19:15
PROVIDERS: ADMIT Obstetrics & Gynecology Gynecologic Oncology; ATTEND Obstetrics & Gynecology Gynecologic Oncology
PROC: 0DBS4ZZ (ICD-10-PCS; 2016-12-24)
PROC: 0DNW4ZZ Release Peritoneum, Percutaneous Endoscopic Approach (ICD-10-PCS; 2016-12-24)
PROC: 0UT74ZZ Resection of Bilateral Fallopian Tubes, Percutaneous Endoscopic Approach (ICD-10-PCS; 2016-12-24)
PROC: 0UT24ZZ Resection of Bilateral Ovaries, Percutaneous Endoscopic Approach (ICD-10-PCS; 2016-12-24)
PROC: 0UBG4ZZ Excision of Vagina, Percutaneous Endoscopic Approach (ICD-10-PCS; 2016-12-24)
PROC: 0UTC7ZZ Resection of Cervix, Via Natural or Artificial Opening (ICD-10-PCS; 2016-12-24)
PROC: 8E0W4CZ Robotic Assisted Procedure of Trunk Region, Percutaneous Endoscopic Approach (ICD-10-PCS; 2016-12-24)
PROC: 0UT9FZZ Resection of Uterus, Via Natural or Artificial Opening With Percutaneous Endoscopic Assistance (ICD-10-PCS; principal; 2016-12-24 11:48)
DX: C54.1 Malignant neoplasm of endometrium (principal); C56.9 Malignant neoplasm of unspecified ovary; K66.8 Other specified disorders of peritoneum; N73.6 Female pelvic peritoneal adhesions (postinfective); R91.8 Other nonspecific abnormal finding of lung field; F17.210 Nicotine dependence, cigarettes, uncomplicated; K21.9 Gastro-esophageal reflux disease without esophagitis; E66.9 Obesity, unspecified; Z68.37 Body mass index [BMI] 37.0-37.9, adult
CPT/HCPCS: 80048; 84155; 85025; 86850; 86900; 86901; 86920; 88112; 88305; 88307; 88309; 88331; J0131; J0690; J1100; J1170; J1644; J1885; J2250; J2270; J2405; J3010; J3480; J7120

== ENCOUNTER 2017-01-13 06:04 | Day surgery (SDC) | payer OTHER ==
[~2017-01-13] VITALS: Ht 162.6 cm; Wt 100.5 kg
[~2017-01-13 06:04] MED LIST changes: +OXYC1TAB63 PO; +ZOFR4TAB PO
[2017-01-13] MEDS ORDERED: ZANT150T2 PO (06:41)
[2017-01-13 06:43] VITALS: BP 144/90; PULSE 75; RESP 20; TEMP 97.9; O2SAT 99
[2017-01-13] MEDS ORDERED: CHLORHEXIDINE GLUCONATE 2 % 1 PACK (2 CLOTHS) TOPICAL SCH (07:00)
[2017-01-13] MEDS ORDERED: SODIUM CHLORIDE 0.9% 1000 ML IV SCH (07:00)
[2017-01-13] MEDS ORDERED: POVIDONE IODINE 5% (ANTISEPSIS KIT) 4 APPLICATIONS EACH NARE SCH (07:00)
[2017-01-13] MEDS ORDERED: ceFAZolin 2 GM PREMIX 50 ML - implanted port/tunneled catheter insertion IV SCH (07:00)
[2017-01-13] MEDS ORDERED: VANCOMYCIN 1000 MG/NS 250 ML - implanted port/tunneled catheter IV SCH ×2 (07:00)
[2017-01-13] MEDS ORDERED: MIDAZOLAM HCL 2 MG/2 ML VIAL ONE ×3 (07:53→08:40)
[2017-01-13] MEDS ORDERED: fentaNYL CITRATE 250 MCG/5 ML AMP ONE (07:53)
[2017-01-13] MEDS ORDERED: LIDOCAINE 2%/EPINEPHrine PF 1:200,000 20ML SDV ONE (08:10)
[2017-01-13 09:15] VITALS: BP_SYST 126; BP_DIAS 71; BP_DIAS 72; PULSE 83; RESP 16; RESP 20; TEMP 97.9; O2SAT 95; O2SAT 96
[2017-01-13 09:30] VITALS: BP 114/56; PULSE 61; RESP 16; O2SAT 95
--- NOTE | 2017-01-13 09:52 | PD.RAD ---
Post Procedure Progress Note Pre Procedure Diagnosis: (1) Endometrial cancer Post Procedure Diagnosis: (1) Endometrial cancer Procedure Date: Jan 13, 2017 Supervising Radiologist: Jaylon Mayen Proceduralist/Assist: Jeri Miguel, RT(R), Catie Sutton RT(R)() Anesthesia: Local, Analgesia, Conscious Sedation Plan of Activity Patient to Unit: [facility] Patient Condition: Good See PACS Report for procedural detail/treatment Central Venous Access Device Procedure 1 Right Internal Jugular Infusaport Placement single lumen Romansh: 8 Jaylon Mayen MD Jan 13, 2017 09:52
[2017-01-13 10:00] VITALS: BP 113/66; PULSE 76; RESP 16; O2SAT 95
[2017-01-13] MEDS ORDERED: SODIUM CHLORIDE 0.9% FLUSH 10 ML FLUSH IVF PRN (10:00)
[2017-01-13 10:30] VITALS: BP 107/64; PULSE 68; RESP 16; O2SAT 95
[2017-01-13 11:00] VITALS: BP 111/68; PULSE 76; RESP 16; O2SAT 95
--- NOTE | 2017-01-13 12:32 | RADRPT ---
EXAM DATE/TIME: 01/13/2017 08:17 [facility] COMPARISON: No previous studies available for comparison. INDICATIONS : Patient is in need of placement of an Infusaport for treatment of metatstatic endometrial cancer. MEDICAL HISTORY : History of anemia. SURGICAL HISTORY : History of vaginal resection, D and C, total gynecologic en bloc resection. ENCOUNTER: Initial ACUITY: 2 months PAIN SCORE: 0/10 FLUORO TIME: 0.5 minutes IMAGE SERIES: 1 SEDATION TIME: 45 minutes ACCESS: Right internal jugular vein SEDATION: 1.) 5 mg midazolam (Versed) IV 2.) 250 mcg fentanyl (Sublimaze) IV Prophylactic antibiotics were administered with appropriate pre-procedure timing. Vancomycin within 2 hours of procedure, Ancef (or alternative) within 1 hour of procedure. DEVICE: 1. 8 [place]-h-jlka PROCEDURE : 1. Continuous pulse oximetry and EKG monitoring. 2. Intravenous conscious sedation. 3. Ultrasound guidance for venous access. 4. Fluoroscopic guided implantable central venous port placement. The patient was placed supine. The neck was prepped in sterile fashion. Full sterile technique was u sed, including cap, mask, sterile gloves and gown, and a large sterile sheet. Hand hygiene and 2% ch lorhexidine Betadine was utilized per protocol for cutaneous antisepsis with appropriate dry time for site. The skin and subcutaneous tissues were infiltrated with local anesthetic solution. Under direct ultrasound guidance, central venous access was accomplished in the targeted vessel. The ultrasound images depicting access guidance were stored and saved to PACS for permanent record. A s ubcutaneous pocket was created using blunt dissection. Please note, because of the patient's body mederos bitus, a far medial port pocket was developed to minimize port mobility and facilitate future access. The port was introduced to the pocket. The catheter tubing was fed through a subcutaneous tunnel to the venotomy site. The catheter tubing was cut to a suitable length and then was introduced through a valved Peel-Away sheath and positioned with catheter tubing tip at the cavo-atrial junction level. The pocket incision was closed with subcuticular Vicryl suture. Steri-Strips were applied. The po rt was flushed and locked with heparin solution per protocol. Sterile dressing was applied to the si te. The patient tolerated the procedure well. Conscious sedation was performed with the prescribed dosages and duration as above in the presence of an independent trained radiology nurse to assist in the monitoring of the patient. EKG and oximetry remained stable throughout the procedure. The patient tolerated the procedure well and there were no complications. The patient was sent to post anesthesia recovery in stable condition. CONCLUSION: Uncomplicated ultrasound and fluoroscopic guided implanted central venous port catheter placement as described in detail above. An 8 [place] [employer] port was placed. Jaylon Mayen MD on January 13, 2017 at 12:30 Board Certified Radiologist. This report was verified electronically.
[2017-02-19] MEDS ORDERED: LORA-392 PO (14:47)
[2017-02-19] MEDS ORDERED: ZOFR8TAB PO (14:59)
[2017-02-19] MEDS ORDERED: DEXA4TAB PO (14:59)
[2017-02-19] MEDS ORDERED: METO10TA PO (14:59)
== END 2017-01-13 11:15 | disposition home or self-care (01) ==
LOC: HROP 06:04 → HRIP 06:05 → HROP 11:15
PROVIDERS: ATTEND Obstetrics & Gynecology Gynecologic Oncology
DX: C54.1 Malignant neoplasm of endometrium (principal); D64.9 Anemia, unspecified
CPT/HCPCS: 36561; 76937; 77001; 99152; 99153; C1788; J0690; J1642; J2250; J3010; J3370; J7030; J7050

== ENCOUNTER 2017-05-07 12:54 | Day surgery (SDC) | payer OTHER ==
[~2017-05-07 12:54] MED LIST changes: -AMOX500T PO; +DEXA4TAB PO; +LORA-392 PO; +METO10TA PO; -OXYC1TAB63 PO; -RANI150T PO; +ZANT150T2 PO; -ZOFR4TAB PO; +ZOFR8TAB PO
[2017-05-07 13:16] VITALS: BP 154/79; PULSE 87; RESP 19; TEMP 98.7; O2SAT 98
--- NOTE | 2017-05-07 15:28 | RADRPT ---
EXAM DATE/TIME: 05/07/2017 15:08 [facility] COMPARISON: No previous studies available for comparison. INDICATIONS : Post port placement MEDICAL HISTORY : Uterine cancer. Smoker. SURGICAL HISTORY : None. ENCOUNTER: Initial ACUITY: 1 day PAIN SCORE: 0/10 LOCATION: Bilateral chest FINDINGS: A single view of the chest demonstrates the lungs to be symmetrically aerated without evidence of mas s, infiltrate or effusion. The right-sided [id number] is in good position. No pneumothorax. The ca rdiomediastinal contours are unremarkable. Osseous structures are intact. CONCLUSION: 1. No pneumothorax. 2. Right [id number] in good position. Xavi Johnson MD on May 07, 2017 at 15:25 Board Certified Radiologist. This report was verified electronically.
--- NOTE | 2017-05-07 15:37 | RADRPT ---
EXAM DATE/TIME: 05/07/2017 15:32 [facility] COMPARISON: No previous studies available for comparison. INDICATIONS : Patient with history of uterine cancer. Port hard to access. MEDICAL HISTORY : 1. uterine cancer 2. history of anemia SURGICAL HISTORY : 1. D and C 2. vaginal resection 3. right infusaport ENCOUNTER: Initial ACUITY: 3 days PAIN SCORE: 0/10 FLUORO TIME: 0.5 minutes IMAGE SERIES: 1 ACCESS: Right infusaport PROCEDURE : 1. Access of [id number]-uhnx. 2. Port patency injection. The risks, benefits and alternatives to the procedure were explained and verbal and written consent w as obtained. The patient was placed supine. The port was prepped in sterile fashion. Full sterile t echnique was used, including cap, mask, sterile gloves and gown, and a large sterile sheet. Hand hyg iene and 2% chlorhexidine prep was utilized per protocol for cutaneous antisepsis with appropriate dr y time for site. The previously placed port was evaluated fluoroscopically. The port was not flipped but does angle me dially. If the tissues to the right of the port were pulled laterally, the port flattens out and the device can be easily accessed at this point.. CONCLUSION: 1. Cord is not flipped but is angled medially. 2. If the tissues right lateral to the port scar are retracted laterally, the port dome flattens out and the device can be easily accessed at that point. This may explain the difficulty with the in-offi ce access attempt. Jaylon Mayen MD on May 07, 2017 at 15:31 Board Certified Radiologist. This report was verified electronically.
== END 2017-05-07 15:08 | disposition home or self-care (01) ==
LOC: HROP 12:54 → HRIP 12:55 → HROP 15:08
PROVIDERS: ATTEND Obstetrics & Gynecology Gynecologic Oncology
DX: Z45.2 Encounter for adjustment and management of vascular access device (principal); C54.1 Malignant neoplasm of endometrium
CPT/HCPCS: 71010; 76000; J1642

== ENCOUNTER 2017-10-20 06:14 | Day surgery (SDC) | payer OTHER ==
[~2017-10-20] VITALS: Ht 162.6 cm; Wt 100.0 kg
[~2017-10-20 06:14] MED LIST changes: -METO10TA PO
[2017-10-20 07:14] VITALS: BP 148/96; PULSE 84; RESP 20; TEMP 98.1; O2SAT 93
[2017-10-20] MEDS ORDERED: SODIUM CHLORIDE 0.9% 1000 ML IV SCH (07:15)
[2017-10-20] MEDS ORDERED: ceFAZolin 2 GM PREMIX 50 ML - implanted port removal IV SCH (07:15)
[2017-10-20] MEDS ORDERED: LIDOCAINE 1%/EPINEPHrine 1:100,000 SOLN 30 ML VIAL ONE (08:13)
[2017-10-20] MEDS ORDERED: fentaNYL CITRATE 250 MCG/5 ML AMP ONE (08:17)
[2017-10-20 09:00] VITALS: BP 139/83; PULSE 76; RESP 18; TEMP 98.3; O2SAT 92
== END 2017-10-20 09:45 | disposition home or self-care (01) ==
LOC: HROP 06:14 → HRIP 06:17 → HROP 09:45
PROVIDERS: ATTEND Nurse Practitioner Family
DX: C54.1 Malignant neoplasm of endometrium (principal); Z45.2 Encounter for adjustment and management of vascular access device
CPT/HCPCS: 36590; J0690; J3010; J7030